=== PATIENT | male | born 1990 | race Caucasian/White ===

== ENCOUNTER 2018-07-28 05:14 | Emergency (ER) | payer MEDICAID ==
[~2018-07-28] VITALS: Ht 177.8 cm; Wt 62.7 kg
[2018-07-28 06:21] VITALS: BP 105/66
[2018-07-28] MEDS ORDERED: HydrOXYzine PAMOATE 50 MG CAPSULE PO ONE (06:45)
== END 2018-07-28 07:19 | disposition home or self-care (01) ==
LOC: EMS 05:15
DX: F41.9 Anxiety disorder, unspecified (principal); F15.10 Other stimulant abuse, uncomplicated; F11.10 Opioid abuse, uncomplicated; F12.90 Cannabis use, unspecified, uncomplicated; F19.90 Other psychoactive substance use, unspecified, uncomplicated; F17.210 Nicotine dependence, cigarettes, uncomplicated
CPT/HCPCS: 99283; 99406